=== PATIENT | female | born 1985 | race Hispanic/Latino ===

== ENCOUNTER 2017-06-30 10:23 | Emergency (ER) | payer OTHER ==
[2017-06-30 11:52] VITALS: BMI 25.0
[2017-06-30] MEDS ORDERED: Lactated Ringer's 1,000 ML IV SCH ×2 (12:00)
[2017-06-30 12:58] LABS: RBC URINE 1 /hpf (0-3); URINE BACTERIA MANY (<OCC); URINE BILIRUBIN NEGATIVE (NEGATIVE); URINE BLOOD NEGATIVE (NEGATIVE); URINE COLOR STRAW (YELLOW); URINE GLUCOSE (UA) NEG (Normal); URINE KETONE NEGATIVE (NEGATIVE); URINE LEUKOCYTE ESTERASE TRACE Leu/uL (Negative); URINE PROTEIN NEGATIVE (NEGATIVE); URINE UROBILINOGEN 0.2-1.0 mg/dL (0.2-1.0)
[2017-06-30 12:59] LABS: WBC URINE 8 /hpf (0-5)
--- NOTE | 2017-06-30 13:24 | OBHP ---
Datetime: 06/30/2017 13:14 IP Adm Impression: , intrauterine ; No Active Labor IP Admit Plan: Discharge home Admit Comment, IP Provider: pt was hydrated and U/a showed leukocyte trace and many bacteria After h ydration UC dissipated D/C home on bed rest and pelvic rest with Rx for Macrobid Will folllow in offi ce on Monday Increase po fluids Instructions given Extremities - PN: Normal Abdomen - PN: Abnormal Back - PN: Normal Breast - PN: Normal Lungs - PN: Normal Heart - PN: Normal Thyroid - PN: Normal Neurologic - PN: Normal HEENT - PN: Normal General - PN: Normal FHR - Baseline A Provider: 150 Membranes, Provider: Intact Contraction Comments Provider: irreg q 7-15 min Comments, ACOG Physical Exam: abd gravid, NT SVE speculum no blood or bloody discharge no fluid in v agina Cx closed but a bit short Ext no calf tenderness. Gestation - Est Wks by US: 35wks 5days Pool Provider: Negative IP Hx Assessment: The History has been Reviewed and is Current EGA AdmitDate IP: 35.5 Vital Signs Provider: Reviewed IP Chief Complaint: Uterine contractions; Other NICHD Variability Prov Fetus A: Moderate 6-25bpm NICHD Accel Fetus A IP Provider: Prolonged NICHD Decel Fetus A IP Provider: None Dilatation, Provider: closed Genitourinary Exam: Normal DTRs - PN: Normal
--- NOTE | 2017-06-30 13:32 | OBDCSUM ---
Datetime: 06/30/2017 13:28 Discharged to, Provider: Home Follow up at, Provider: Dr Valladares Disch Instr Activity: Bedrest; May be up to bathroom; May be up for meals; May Shower Disch Instr Diet: Regular Discharge Instructions, Provider: Routine instructions given Discharge Diagnosis, Provider: Labor Follow up in weeks, Provider: Monday Disch Referrals: None Contraception discussed, Prov: n/a Disch Activity Restrictions: No exercising; No lifting; No driving; Minimize walking; Minimize stair -climbing; No sexual activity; Nothing in vagina - [place], tampons, douche Discharge Comment, Provider: rx for Macrobid given
[2017-06-30 19:43] VITALS: BP 102/56; PULSE 83; TEMP 98.3; O2SAT 100
== END 2017-06-30 13:45 | disposition home or self-care (01) ==
LOC: H.L&D 10:23 → H.EROB2 10:23
DX: O23.43 Unspecified infection of urinary tract in pregnancy, third trimester (principal); Z3A.35 35 weeks gestation of pregnancy
CPT/HCPCS: 81003; 99283; J7120